=== PATIENT | female | born 1985 | race Caucasian/White ===

== ENCOUNTER 2018-07-20 10:28 | Emergency (ER) | payer OTHER ==
[~2018-07-20] VITALS: Ht 162.6 cm; Wt 86.7 kg
[~2018-07-20 10:28] MED LIST: CAMILA0.35 MG PO; IBUPROFEN800 MG PO; KEFLEX500 MG PO; MACROBID100 MG PO; PRENATAL TABLE1 EAC3 PO; PYRIDIUM100 MG PO
[2018-07-20 11:26] LABS: HEMATOCRIT 36.2 % (36.0-46.0); HEMOGLOBIN 12.2 G/DL (11.9-15.5); MCH 29.7 PG (29.0-34.0); MCHC 33.7 G/DL (30.0-36.0); MCV 88.1 FL (83-99); PLATELET COUNT 198 K/uL (156-360); RBC DIS.WIDTH-CV 11.2 % (11.8-14.6); RED BLOOD COUNT 4.11 M/uL (3.80-5.20); WHITE BLOOD COUNT 2.9 K/uL (4.1-10.2)
[2018-07-20 11:46] LABS: CHLORIDE 108 mEq/L (99-109); POTASSIUM 3.9 mEq/L (3.7-5.4)
[2018-07-20 11:47] LABS: SODIUM 140 mEq/L (136-147)
[2018-07-20 11:49] LABS: GLUCOSE 82 mg/dL (70-99); TOTAL PROTEIN 8.3 g/dL (6.4-8.3)
[2018-07-20 11:51] LABS: TOTAL BILIRUBIN 0.3 mg/dL (0.0-1.0)
[2018-07-20 11:52] LABS: ALKALINE PHOSPHATASE 75 IU/L (3-129); CREATININE 0.8 mg/dL (0.6-1.3); GFR ESTIMATE (CALCULATED) > 59 mL/min/
[2018-07-20 11:54] LABS: AST (GOT) 23 IU/L (2-34); UREA NITROGEN (BUN) 10 mg/dL (9-23)
[2018-07-20 11:55] LABS: ALT (GPT) 22 IU/L (3-49)
[2018-07-20 12:01] LABS: QUANTITATIVE HCG < 4.0 MIU/ML
[2018-07-20 12:03] LABS: APPEARANCE CLEAR ((CLEAR)); BILIRUBIN NEGATIVE; BLOOD NEGATIVE; COLOR STRAW ((YELLOW)); GLUCOSE (STRIP) NEGATIVE; KETONES NEGATIVE; LEUKOCYTES NEGATIVE; NITRITE NEGATIVE; PROTEIN (STRIP) NEGATIVE; UCUL ADDED? NO; UROBILINOGEN 0.2 MG/DL (0.2-1.0)
[2018-07-20] MEDS ORDERED: ANTIVERT25 MG PO (13:23)
[2018-07-20 13:29] VITALS: BP 111/75
== END 2018-07-20 13:30 | disposition home or self-care (01) ==
LOC: EME 10:28
DX: R42 Dizziness and giddiness (principal); R20.0 Anesthesia of skin; R51 Headache; R11.0 Nausea; R61 Generalized hyperhidrosis; D72.819 Decreased white blood cell count, unspecified
CPT/HCPCS: 70450; 80053; 81003; 84702; 85027; 93005; 99281; 99284